=== PATIENT | female | born 1935 | race Caucasian/White ===

== ENCOUNTER 2024-01-06 15:34 | Emergency (ER) | payer OTHER ==
[2024-01-06 15:43] VITALS: BP 121/77; PULSE 97; RESP 18; TEMP 97.8; BMI 24.6
[2024-01-06] MEDS ORDERED: ACETAMINOPHEN 325 MG TABLET (FP) ONE (19:00)
[2024-01-06] MEDS ORDERED: DIPHTH,PERTUSS(ACELL),TET 0.5 ML DISP.SYRIN IM ONE ×2 (19:00→19:01)
[2024-01-06] MEDS: ACETAMINOPHEN 325 MG TABLET (FP) PO ONE (19:05)
[2024-01-06] MEDS: DIPHTH,PERTUSS(ACELL),TET 0.5 ML DISP.SYRIN IM ONE (19:05)
[2024-01-06] MEDS ORDERED: BACITRACIN ZINC 15 GM TUBE TOPICAL OINTMENT TP ONE (19:11)
[2024-01-06] MEDS ORDERED: BACITRACIN ZINC 15 GM TUBE TOPICAL OINTMENT ONE (19:12)
== END 2024-01-06 19:07 | disposition home or self-care (01) ==
LOC: JER 15:34
PROC: 3E0234Z Introduction of Serum, Toxoid and Vaccine into Muscle, Percutaneous Approach (ICD-10-PCS; principal; 2024-01-06)
DX: S02.2XXA Fracture of nasal bones, initial encounter for closed fracture (principal); S80.01XA Contusion of right knee, initial encounter; S00.83XA Contusion of other part of head, initial encounter; W01.0XXA Fall on same level from slipping, tripping and stumbling without subsequent striking against object, initial encounter; Y93.01 Activity, walking, marching and hiking; Z23 Encounter for immunization
CPT/HCPCS: 70450-TC; 70486-TC; 71046-TC-FY; 72125-TC; 73110-TC-LT-FY; 73110-TC-RT-FY; 73130-TC-LT-FY; 73130-TC-RT-FY; 73560-TC-LT-FY; 73560-TC-RT-FY; 90471; 90715; 99284-25